=== PATIENT | male | born 1995 | race Two or more races ===

== ENCOUNTER 2021-07-24 13:00 | Emergency (ER) | payer OTHER ==
[~2021-07-24] VITALS: Ht 182.9 cm; Wt 254.0 kg
[2021-07-24] MEDS ORDERED: GLUMETZA500 MG PO (13:18)
[2021-07-24] MEDS ORDERED: SINBASTATIN (13:20)
[2021-07-24] MEDS ORDERED: [UNRECOGNIZED DRUG - OTHER] (13:20)
== END 2021-07-24 17:32 | disposition home or self-care (01) ==
LOC: ER 13:00
DX: R42 Dizziness and giddiness (principal); Z20.822 Contact with and (suspected) exposure to COVID-19

== ENCOUNTER 2021-07-31 21:35 | Emergency (ER) | payer OTHER ==
[~2021-07-31] VITALS: Ht 182.9 cm; Wt 247.2 kg
[~2021-07-31 21:35] MED LIST: GLUMETZA500 MG PO; SINBASTATIN; [UNRECOGNIZED DRUG - OTHER]
== END 2021-07-31 23:22 | disposition home or self-care (01) ==
LOC: ER 21:35
DX: G51.0 Bell's palsy (principal)

== ENCOUNTER 2021-12-22 20:03 | Emergency (ER) | payer OTHER ==
[~2021-12-22] VITALS: Ht 182.9 cm; Wt 240.4 kg
[2021-12-22] MEDS ORDERED: GLIPIZIDE XL2.5 MG (20:41)
[2021-12-22] MEDS ORDERED: LISINOPRIL (20:41)
[2021-12-22] MEDS ORDERED: KETO10TA2 PO (21:55)
[2021-12-22] MEDS ORDERED: NORFLEX100MG PO (21:55)
== END 2021-12-22 22:20 | disposition home or self-care (01) ==
LOC: ER 20:03
DX: S93.402A Sprain of unspecified ligament of left ankle, initial encounter (principal); M54.59 Other low back pain; W18.30XA Fall on same level, unspecified, initial encounter; Y93.9 Activity, unspecified; Y92.009 Unspecified place in unspecified non-institutional (private) residence as the place of occurrence of the external cause; Y99.9 Unspecified external cause status; I10 Essential (primary) hypertension; E11.9 Type 2 diabetes mellitus without complications; Z79.84 Long term (current) use of oral hypoglycemic drugs